=== PATIENT | male | born 1945 | race Caucasian/White ===

== ENCOUNTER → 2023-12-27 08:01 | Outpatient (REF) | payer MEDICARE, OTHER, SELFPAY | LOC: RCS 08:01 | PROVIDERS: ATTENDING PHYSICIAN Nurse Practitioner Gerontology; FAMILY PHYSICIAN Physician Assistant Medical | DX: Q23.1 Congenital insufficiency of aortic valve (principal) | CPT/HCPCS: 93306 ==

== ENCOUNTER 2024-04-01 16:48 | Emergency (ER) | payer MEDICARE, OTHER, SELFPAY ==
[2024-04-01 16:50] VITALS: BP 147/97
--- NOTE | 2024-04-01 18:11 | ED.SKININJ ---
HPI-Injury
General
Chief Complaint: Skin Surface Trauma
Source: patient
Exam Limitations: none
Time Seen by Provider: 04/01/24 18:10
Nursing documentation reviewed up to this point in time: agreed with
History of Present Illness-Injury
Initial Injury comments:
78-year-old male with history of HTN, renal insufficiency with urostomy tube, states he was raking leaves at home within past few hours, tripped and fell striking his face on ground (wearing glasses). Has nose bleed left side which has subsided, has
abrasion right forehead and deep abrasion bridge of nose. Denies LOC, denies H/A, dizziness, change in vision, neck pain or any other injury.
Has had tetanus immunization within the past 5 years.
Past History
Past History
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
his bladder)
ED Past Surgical History: Orthopedic (Lumbar laminectomy, wrist surgery ) and Other (Inguinal hernia repair , Bladder removed with Urestomy,)
Social History
Tobacco: Former smoker
Alcohol: Occasional
Personal:
Living: alone
Employment: Retired
Review of Systems
Review of Systems
Allergies reviewed?: Yes
All Other Systems: ROS reviewed and negative except as documented in HPI and ROS
Constitutional: Denies fever
EENT: Reports other (Left epistaxis, resolved)
Respiratory: Denies trouble breathing
Cardiac: Denies chest pain or syncope
ABD/GI: Denies abdominal pain or nausea
Musculoskeletal: Denies joint pain, neck pain or back pain
Skin: Reports other (Scraped nose and forehead)
Neurological: Reports no symptoms
Phy Exam
Physical Exam
Physical Exam:
GENERAL: No acute distress. A&Ox3.
CONSTITUTIONAL: Afebrile.
EYES: PERRL, conjunctivae normal
Neck: Supple
ENMT: moist mucus membranes, Pharynx nl, TMs normal, no bony tenderness of nose. Bleeding has stopped.
RESPIRATORY: Regular respirations, nonlabored, lungs clear.
CARDIOVASCULAR: Regular rate and rhythm, no murmurs, no rubs.
GI: Soft, nontender, normal BS
MUSCULOSKELETAL: No spinal bony tenderness. Moving all extremities well without pain. Moves with ease. Well perfused.
SKIN: Warm, dry, pink
PSYCH: Normal mood and affect. Well kept, interactive and appropriate
NEUROLOGIC: Awake, alert and oriented. No focal neurological deficits. Ambulates well with steady gait.
Course
Vital Signs
Initial and Last Documented VS:
Initial Vital Signs
Temp Pulse Resp BP Pulse Ox
98.9 F 72 16 147/97 96
04/01/24 16:50 04/01/24 16:50 04/01/24 16:50 04/01/24 16:50 04/01/24 16:50
Last Documented Vital Signs
Temp Pulse Resp BP Pulse Ox
98.9 F 72 16 147/97 96
04/01/24 16:50 04/01/24 16:50 04/01/24 16:50 04/01/24 16:50 04/01/24 16:50
MDM/Problems Addressed
Differential Diagnosis Includes:
78-year-old male with history of HTN, renal insufficiency with urostomy tube, states he was raking leaves at home within past few hours, tripped and fell striking his face on ground (wearing glasses). Has nose bleed left side which has subsided, has
abrasion right forehead and deep abrasion bridge of nose. Denies LOC, denies H/A, dizziness, change in vision, neck pain or any other injury.
Has had tetanus immunization within the past 5 years.
Neuro exam is normal. Not anticoagulated, no history LOC, no indication for head CT
Nasal bones are nontender, no indication for imaging. Patient is fine with this
Epistaxis has stopped
Patient ambulated out with normal gait at discharge. Family member will stay with him tonight.
*Critical Care Note
Total Time (30-74mins, 75-104mins- exclusive of procedures): Not Applicable
ED Attending Note
-
Portions of this chart may have been created with voice recognition software.� Occasional wrong word or��sound alike� substitutions may have occurred due to the inherent limitations of voice recognition software.
Discharge Plan
Departure
Patient Disposition: Home (Routine Discharge)
Date of Disposition: 04/01/24
Time of Disposition: 18:39
Patient with high blood pressure during this ER visit?: No
Condition: Good
Discharge Problem:
Fall from slip, trip, or stumble, Abrasion of forehead, Abrasion of nose, Epistaxis due to trauma
Instructions: Head injury in adults, Taking care of cuts, scrapes, and puncture wounds
Prescriptions:
No Action
metoprolol succinate 50 MG tablet extended release 24 hr
50 mg PO HS
amlodipine 10 MG tablet
5 mg PO DAILY
gemfibrozil 600 MG tablet
600 mg PO BID
glucosamine HCl 1,500 MG tablet
1,500 mg PO DAILY
cholecalciferol (vitamin D3) 1,000 UNITS tablet
1,000 units PO DAILY
sodium bicarbonate 650 MG tablet
1,950 mg PO TID Qty: 150 0RF
omega-3 fatty acids-fish oil [Fish Oil] 1,000 MG capsule
1 cap PO DAILY
Referrals:
Yolande Ramirez PA [Family Provider] - As needed
Activity Restrictions/Additional Instructions:
As we discussed, I see nothing worrisome in your evaluation here tonight
Check with your family doctor and if you have not had a tetanus immunization within the last 5 years you should get 1
Return here immediately for vomiting more than once in 1 hour, confusion or headache that gets worse and worse despite Tylenol
Cleanse the areas with soap and water daily, apply antibiotic ointment.
Interventions
Interventions:
*Risk Screen - Suicide Last Done: 04/01/24 16:50
*General Assessment Last Done: 04/01/24 16:50
*Neglect/Abuse Screening Last Done: 04/01/24 16:50
ED- Fall Risk Assessment Last Done: 04/01/24 18:50
*Nursing Disposition Last Done: 04/01/24 18:50
ED-Skin Assessment Last Done: 04/01/24 18:39
Discharge Date and Time
Discharge Date/Time: 04/01/24 18:51
Print Language: MONGOLIAN
== END 2024-04-01 18:51 | disposition home or self-care (01) ==
LOC: EMR 16:48
PROVIDERS: EMERGENCY PHYSICIAN Emergency Medicine; FAMILY PHYSICIAN Physician Assistant Medical
DX: S00.31XA Abrasion of nose, initial encounter (principal); S00.81XA Abrasion of other part of head, initial encounter; R04.0 Epistaxis; W01.0XXA Fall on same level from slipping, tripping and stumbling without subsequent striking against object, initial encounter; I12.9 Hypertensive chronic kidney disease with stage 1 through stage 4 chronic kidney disease, or unspecified chronic kidney disease; N18.9 Chronic kidney disease, unspecified; E78.00 Pure hypercholesterolemia, unspecified; Z87.442 Personal history of urinary calculi; Z87.891 Personal history of nicotine dependence; Z99.11 Dependence on respirator [ventilator] status; M35.9 Systemic involvement of connective tissue, unspecified
CPT/HCPCS: 99282

== ENCOUNTER 2024-08-08 01:17 | Inpatient (IN) | payer MEDICARE, OTHER, SELFPAY ==
[2024-08-07 22:08] VITALS: BP 128/87
[2024-08-07 22:20] VITALS: BP 132/97
[2024-08-07 22:21] VITALS: BMI 25.7
--- NOTE | 2024-08-07 22:35 | ED.GENMED ---
History of Present Illness
<Rolly Davila MD - Last Filed: 08/07/24 23:13>
General
Chief Complaint: Cardiac Symptoms
Time Seen by Provider: 08/07/24 22:18
<TIFFANIE Boyd - Last Filed: 08/08/24 00:53>
General
Source: patient
Exam Limitations: none
Nursing documentation reviewed up to this point in time: agreed with
History of Present Illness
History of Present Illness:
79-year-old male with past medical history of Legionella, renal failure, renal transplant (followed at [place]) presents to the ER for evaluation. Patient reports around 8:30 PM this evening his Apple Watch went off and told him his heart rate was
elevated. He was asymptomatic at that time. He denied any palpitations chest pain or shortness of breath.
No prior history of cardiac issues. He does follow with cardiology here at [place] for yearly screenings related to his transplant. He has seen Dr. Marlow in the past.
No prior history of CAD or arrhythmia.
No recent [id number]-gra-[id number] cough cold medicines.
Patient remains asymptomatic.
Past History
<TIFFANIE Boyd - Last Filed: 08/08/24 00:53>
Past History
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
his bladder)
ED Past Surgical History: Orthopedic (Lumbar laminectomy, wrist surgery ) and Other (Inguinal hernia repair , Bladder removed with Urestomy,)
Social History
Tobacco: Former smoker
Alcohol: Occasional
Personal:
Living: alone
Employment: Retired
Review of Systems
<TIFFANIE Boyd - Last Filed: 08/08/24 00:53>
Review of Systems
Allergies reviewed?: Yes
All Other Systems: ROS reviewed and negative except as documented in HPI and ROS
Constitutional: Reports no symptoms
EENT: Reports no symptoms
Respiratory: Reports no symptoms; Denies trouble breathing
Cardiac: Reports no symptoms; Denies chest pain, palpitations or syncope
ABD/GI: Reports no symptoms
: Reports no symptoms
Musculoskeletal: Reports no symptoms
Skin: Reports no symptoms
Neurological: Reports no symptoms
Psychiatric: Reports no symptoms
Phy Exam
<TIFFANIE Boyd - Last Filed: 08/08/24 00:53>
General Physical Exam
General Presentation: no apparent distress
General age: appears stated age
General Skin: warm and dry
General Habitus: normal
General Mental: alert
General Hydration: appears well hydrated
Cardiovascular Exam
Cardiovascular Exam: tachycardia
Pulmonary Exam
Pulmonary Exam: lungs clear and no respiratory distress
Neurological Exam
Neurological Exam: alert and oriented x3
Musculoskeletal Exam
Musculoskeletal Exam: full ROM
Skin Exam
Skin Exam: normal color and warm/dry
Psychiatric Exam
Psychiatric Exam: normal mood/affect
Course
<Rolly Davila MD - Last Filed: 08/07/24 23:13>
Orders/Labs/Results
Orders:
Orders
08/07/24 22:00
TSH Reflex To Free T4 Urgent
Comment: ADDED
08/07/24 22:05
ECG [Electrocardiogram (*1)] Urgent
Reason for Study: Tachycardia
EKG- Treatment ONCE
08/07/24 22:07
Cardiac Monitoring- Treatment ONCE
08/07/24 22:20
Complete Blood Count/With Diff Urgent
Comprehensive Metabolic Panel Urgent
Troponin I Routine
08/07/24 22:46
0.9% Sodium Chloride 1000 ml [Nss] 1,000 ml IV BOLUS
08/07/24 22:48
Adenosine [Adenocard] 6 mg IV NOW STA
08/07/24 23:01
Adenosine [Adenocard] 12 mg .ROUTE .STK-MED ONE
08/07/24 23:02
Adenosine [Adenocard] 12 mg IV NOW STA
08/07/24 23:10
Diltiazem HCl [Cardizem] 10 mg IV NOW STA
08/07/24 23:12
Heparin 4,000 units IV NOW STA
Nursing to Place Non Medication Order As Directed
Physician Order: PTT 6 hours after initial start of Heparin infusion
08/07/24 23:15
Diltiazem 125 mg/125 ml Nss [Cardizem] 125 mg in 125 ml IV PER PROTOCOL
Initial dose in mg/hr, then titrate:: 5
Titrate to keep:: Heart rate 80-100 bpm
Titrate by mg/hr:: 5 mg/hr
Frequency of titrations (minutes):: 15
Maximum dose in mg/hr:: 15
Heparin 18044 Units/250 ml 25,000 units in 250 ml IV PER PROTOCOL
Weight to be used for heparin protocol in kilograms (kg):: 88.18
Protocol:: Cardiac Tx/Acute Coronary
PTT Goal Range to be used:: PTT 73 to 111 seconds
Order type:: Initial
INITIAL Infusion Dose (UNITS/KG/hr) & then follow protocol:: 12 units/kg/hr
Infusion Dose in UNITS/hr & then follow protocol (UNITS/hr):: 1,000
INFUSION RATE in mL/hr & then follow protocol (mL/hr):: 10
PTT less than or equal to 64 seconds:: Increase rate by 200 units/hr (+ 2 mL/hr)
PTT 64.1 to 72.9 seconds:: Increase rate by 100 units/hr (+ 1 mL/hr)
PTT 73 to 111 seconds:: Target Range. No change in rate.
PTT 111.1 to 130.9 seconds:: Decrease rate by 100 units/hr (- 1 mL/hr)
PTT 131 to 199.9 seconds:: HOLD for 1 hr. Then decrease rate by 200 units/hr (- 2 mL/hr)
PTT greater than or equal to 200 seconds:: HOLD for 2 hrs & Notify Provider. Then decrease by 200 units/hr (-
2 mL/hr)
Lab follow-up:: Each change, PTT q6h until 2 consecutive are therapeutic. Then PTT
daily.
08/07/24 23:16
Add On- LAB Routine
Tests Added?: tsh with reflexive t4
Add On- LAB Urgent
Tests Added?: tsh with reflexive t4
08/07/24 23:24
PTT Urgent
Comment: Obtain baseline before beginning heparin infusion if not already collected
08/08/24 00:40
Metoprolol Xl [Toprol Xl] 50 mg PO NOW STA
08/08/24 01:20
Troponin I Urgent
Abnormal Lab Results
08/07/24
22:20
RBC 4.69 L 10^6/uL
(4.70-6.10)
MCH 31.8 H pg
(27.0-31.0)
MPV 10.5 H fL
(7.4-10.4)
Absolute Monos (auto) 0.7 H 10^3/uL
(0.1-0.6)
Monocytes % 10.8 H %
(1.7-9.3)
BUN 30 H mg/dl
(9-20)
Glucose 133 H mg/dl
(70-99)
Troponin I 0.078 H* ng/ml
08/07/24 22:20
08/07/24 22:20
Vital Signs
Initial and Last Documented VS:
Initial Vital Signs
Temp Pulse Resp BP Pulse Ox
97.6 F 140 18 128/87 98
08/07/24 22:08 08/07/24 22:08 08/07/24 22:08 08/07/24 22:08 08/07/24 22:08
Last Documented Vital Signs
Temp Pulse Resp BP Pulse Ox
97.6 F 136 17 110/81 94
08/07/24 22:08 08/08/24 00:51 08/08/24 00:00 08/08/24 00:51 08/08/24 00:00
<TIFFANIE Boyd - Last Filed: 08/08/24 00:53>
Orders/Labs/Results
Orders:
Orders
08/07/24 22:00
TSH Reflex To Free T4 Urgent
Comment: ADDED
08/07/24 22:05
ECG [Electrocardiogram (*1)] Urgent
Reason for Study: Tachycardia
EKG- Treatment ONCE
08/07/24 22:07
Cardiac Monitoring- Treatment ONCE
08/07/24 22:20
Complete Blood Count/With Diff Urgent
Comprehensive Metabolic Panel Urgent
Troponin I Routine
08/07/24 22:46
0.9% Sodium Chloride 1000 ml [Nss] 1,000 ml IV BOLUS
08/07/24 22:48
Adenosine [Adenocard] 6 mg IV NOW STA
08/07/24 23:01
Adenosine [Adenocard] 12 mg .ROUTE .STK-MED ONE
08/07/24 23:02
Adenosine [Adenocard] 12 mg IV NOW STA
08/07/24 23:10
Diltiazem HCl [Cardizem] 10 mg IV NOW STA
08/07/24 23:12
Heparin 4,000 units IV NOW STA
Nursing to Place Non Medication Order As Directed
Physician Order: PTT 6 hours after initial start of Heparin infusion
08/07/24 23:15
Diltiazem 125 mg/125 ml Nss [Cardizem] 125 mg in 125 ml IV PER PROTOCOL
Initial dose in mg/hr, then titrate:: 5
Titrate to keep:: Heart rate 80-100 bpm
Titrate by mg/hr:: 5 mg/hr
Frequency of titrations (minutes):: 15
Maximum dose in mg/hr:: 15
Heparin 99473 Units/250 ml 25,000 units in 250 ml IV PER PROTOCOL
Weight to be used for heparin protocol in kilograms (kg):: 88.18
Protocol:: Cardiac Tx/Acute Coronary
PTT Goal Range to be used:: PTT 73 to 111 seconds
Order type:: Initial
INITIAL Infusion Dose (UNITS/KG/hr) & then follow protocol:: 12 units/kg/hr
Infusion Dose in UNITS/hr & then follow protocol (UNITS/hr):: 1,000
INFUSION RATE in mL/hr & then follow protocol (mL/hr):: 10
PTT less than or equal to 64 seconds:: Increase rate by 200 units/hr (+ 2 mL/hr)
PTT 64.1 to 72.9 seconds:: Increase rate by 100 units/hr (+ 1 mL/hr)
PTT 73 to 111 seconds:: Target Range. No change in rate.
PTT 111.1 to 130.9 seconds:: Decrease rate by 100 units/hr (- 1 mL/hr)
PTT 131 to 199.9 seconds:: HOLD for 1 hr. Then decrease rate by 200 units/hr (- 2 mL/hr)
PTT greater than or equal to 200 seconds:: HOLD for 2 hrs & Notify Provider. Then decrease by 200 units/hr (-
2 mL/hr)
Lab follow-up:: Each change, PTT q6h until 2 consecutive are therapeutic. Then PTT
daily.
08/07/24 23:16
Add On- LAB Routine
Tests Added?: tsh with reflexive t4
Add On- LAB Urgent
Tests Added?: tsh with reflexive t4
08/07/24 23:24
PTT Urgent
Comment: Obtain baseline before beginning heparin infusion if not already collected
08/08/24 00:40
Metoprolol Xl [Toprol Xl] 50 mg PO NOW STA
08/08/24 01:20
Troponin I Urgent
Abnormal Lab Results
08/07/24
22:20
RBC 4.69 L 10^6/uL
(4.70-6.10)
MCH 31.8 H pg
(27.0-31.0)
MPV 10.5 H fL
(7.4-10.4)
Absolute Monos (auto) 0.7 H 10^3/uL
(0.1-0.6)
Monocytes % 10.8 H %
(1.7-9.3)
BUN 30 H mg/dl
(9-20)
Glucose 133 H mg/dl
(70-99)
Troponin I 0.078 H* ng/ml
08/07/24 22:20
08/07/24 22:20
Vital Signs
Initial and Last Documented VS:
Initial Vital Signs
Temp Pulse Resp BP Pulse Ox
97.6 F 140 18 128/87 98
08/07/24 22:08 08/07/24 22:08 08/07/24 22:08 08/07/24 22:08 08/07/24 22:08
Last Documented Vital Signs
Temp Pulse Resp BP Pulse Ox
97.6 F 136 17 110/81 94
08/07/24 22:08 08/08/24 00:51 08/08/24 00:00 08/08/24 00:51 08/08/24 00:00
Director Business Travel consulted with Physician
Director Business Travel consulted with physician?: Yes
Name of Physician Consulted: dakota
<TIFFANIE Boyd - Last Filed: 08/08/24 00:53>
MDM/Problems Addressed
Differential Diagnosis Includes:
Not limited to atrial fibrillation a flutter, SVT
MDM/Problems Addressed:
As documented patient is a 79-year-old male with past medical history of renal transplant presented for elevated heart rate. He had no symptoms but his Apple Watch told him his heart rate was elevated. He presents asymptomatic however presented
with a narrow complex tachycardia. Case discussed ED physician at bedside with patient. Patient was given 6 mg of adenosine followed by 12 mg of adenosine which did show a rhythm of a flutter. Patient was then given Cardizem bolus and drip.
Heparin was ordered. Patient is a transplant patient and will likely need consultation with cardiology as well as transplant. Patient is in no acute distress remains asymptomatic denies any fever chills. Patient has normal white count, his Trop
is elevated however this is likely from elevated heart rate no chest pain.
Patient admitted to the hospitalist service. Patient is unsure if he took his metoprolol. He normally takes 100 mg however I will give 50 orally since he is already on Cardizem now.
Chronic conditions affecting care:
renal transplant
<TIFFANIE Boyd - Last Filed: 08/08/24 00:53>
*Critical Care Note
Total Time (30-74mins, 75-104mins- exclusive of procedures): Not Applicable
ED Attending Note
<Rolly Davila MD - Last Filed: 08/07/24 23:13>
ED Attending Note
Patient seen and examined by attending physician: Yes
ED Attending Note:
I have seen and evaluated the patient with a [id number] encounter. I have spoken to the advance practicer provider and involved in the medical history, the physical exam, medical decision making.
Evaluation and management service: agree unless noted differently below.
Results interpretation: agree unless noted differently below.
Focused HPI: 79-year-old male with history as noted presents for evaluation of tachycardia. Patient says that this evening his watch started to alert him that his heart rate was very high and that he should seek medical attention and so he came to
the emergency room. He says he is asymptomatic. Does not believe he has had issues with high heart rate in the past. He has seen Dr. Patterson for routine cardiac screening in the setting of renal transplant.
Physical exam: Awake alert no distress. Tachycardic with ostensibly regular rhythm.
Medical Decision Makin-year-old male presents with narrow complex tachycardia; he is asymptomatic. He is hemodynamically stable. He was given adenosine which showed revealed atrial flutter. No history of atrial fibrillation/flutter. Will
plan for rate control�cardioversion contraindicated in the absence of anticoagulation as patient is asymptomatic and chronicity of atrial fibrillation/flutter unclear. Admit for rate control.
<TIFFANIE Boyd - Last Filed: 08/08/24 00:53>
-
Portions of this chart may have been created with voice recognition software.� Occasional wrong word or��sound alike� substitutions may have occurred due to the inherent limitations of voice recognition software.
Discharge Plan
Departure
Patient Disposition: Admit
Date of Disposition: 08/08/24
Time of Disposition: 00:28
Admit to: IMU
Admit to doctor: hospitalist
Presentation/result/management discussed w/ accepting MD/DO: Hospitalist
Patient with high blood pressure during this ER visit?: No
Condition: Fair
Covid-19: Not Applicable
Discharge Problem:
Atrial flutter
Prescriptions:
No Action
metoprolol succinate 100 mg Tablet Extended Release 24 Hr
100 mg PO DAILY
prednisone 5 mg Tablet
5 mg PO DAILY
Theragen Tablet
1 tab PO HS
aspirin 81 mg Tablet,Delayed Release (/Ec)
81 mg PO HS
simvastatin 20 mg Tablet
20 mg PO HS
hydrochlorothiazide 25 mg Tablet
25 mg PO DAILY
tacrolimus 1 mg Capsule
1 mg PO Q12H
omega 0-afj-etb-fish oil [Fish Oil] 1,000 (120-180) mg Capsule
1 cap PO DAILY
Referrals:
Yolande Ramirez PA [Family Provider] -
UNKNOWN - PT DOES,NOT KNOW [Unknown Provider] -
Interventions
Interventions:
*Risk Screen - Suicide Last Done: 08/07/24 22:08
*General Assessment Last Done: 08/07/24 22:21
*Neglect/Abuse Screening Last Done: 08/07/24 22:08
*ED- Fall Risk Assessment Last Done: 08/07/24 22:21
*ED COVID-19 Vaccine History Last Done: 08/07/24 22:21
ED- Pulmonary Assessment Last Done: 08/07/24 23:15
ED- Cardiac Assessment Last Done: 08/07/24 23:15
Discharge Date and Time
Print Language: CHADIAN
[2024-08-07 22:50] LABS: % Basophils 0.5 % (0-2); % Eosinophils 1.7 % (0-6); % Immature Granulocytes 0.3 % (0-0.5); % Lymphocytes 26.3 % (20.5-51.1); % Monocytes 10.8 % (1.7-9.3); % Neutrophils 60.4 % (42.2-75.2); Absolute Eosinophils 0.1 10^3/uL (0-0.7); Absolute Lymphocytes 1.6 10^3/uL (1.2-3.4); Absolute Monocytes 0.7 10^3/uL (0.1-0.6); Absolute Neutrophils 3.6 10^3/uL (1.4-6.5); Hematocrit 43.2 % (39.0-52.0); Hemoglobin 14.9 g/dL (13.0-18.0); Mean Corp Hgb Conc. 34.5 g/dL (33.0-37.0); Mean Corpuscular Hgb 31.8 pg (27.0-31.0); Mean Corpuscular Volume 92.1 fL (80.0-94.0); Mean Platelet Volume 10.5 fL (7.4-10.4); Nucleated Red Blood Cells % 0 % (-); Platelet Count 130 10^3/uL (130-400); Red Blood Cell Count 4.69 10^6/uL (4.70-6.10); Red Cell Dist. Width 13.6 % (11.5-14.5)
[2024-08-07] MEDS: NSS 1000 IV (22:51)
[2024-08-07] MEDS: ADENOCARD 6 MG IV (22:58)
[2024-08-07 23:02] LABS: ALT (SGPT) 24 U/L (0-50); AST (SGOT) 30 U/L (17-59); Albumin 4.1 g/dl (3.5-5.0); Alkaline Phosphatase 73 U/L (38-126); Blood Urea Nitrogen 30 mg/dl (9-20); Calcium 9.7 mg/dl (8.4-10.2); Carbon Dioxide 27 mmol/L (22-30); Chloride 104 mmol/L (98-107); Estimated Creatinine Clearance 53 ml/min; Glucose 133 mg/dl (70-99); Potassium 3.9 mmol/L (3.5-5.1); Sodium 142 mmol/L (135-145); Total Bilirubin 0.6 mg/dl (0.2-1.3); Total Protein 7.1 g/dl (6.3-8.2); eGFR 56.23
[2024-08-07] MEDS: ADENOCARD 12 MG IV (23:03)
[2024-08-07 23:05] VITALS: BP 134/98
[2024-08-07 23:07] LABS: Troponin I 0.078 ng/ml
[2024-08-07 23:13] VITALS: BMI 26.9
[2024-08-07] MEDS: HEPARIN 4000 UNITS IV (23:27)
[2024-08-07] MEDS: CARDIZEM 10 MG IV (23:31)
[2024-08-07] MEDS: CARDIZEM 125 IV (23:37)
[2024-08-07 23:43] LABS: APTT 28.2 Sec (23.4-35.0)
[2024-08-08] VITALS (21 sets, daily range): BP systolic 93–130; BP diastolic 43–91; BMI 26.5
[2024-08-08] MEDS: HEPARIN 25000 UNITS/250 ML IV (00:30)
--- NOTE | 2024-08-08 00:45 | HPS.HSE ---
Family Physician
-
Family Physician: Yolande Ramirez
Chief Complaint
-
Tachycardia
History of Present Illness
This is 79-year-old male with past medical history significant for end-stage renal disease status post living related kidney transplantation on 10 years ago, hypertension and hyperlipidemia who presents to the emergency department with tachycardia
determined by his wrist watch.
Patient denies any symptoms. He awoke in usual state of health. He states he was more active today but otherwise has been no change in his routine. He does not remember whether he took his usual dose of metoprolol this morning. He did remember
taking his tacrolimus both in the morning and in the evening. He stated that at around 8 PM he was alerted by his watch that his heart rate was in the 130s. He ignored this but then called again and this time he talked to his sibling who is a
nurse. He measured his blood pressure and it was normal. His heart rate remained in the 130s and his sibling asked him to seek help.
Patient denies noticing any palpitations. He denies feeling dizzy or lightheaded. He denies having any chest pain. He denies any shortness of breath. He has chronic lower extremity edema that is dependent and states he has been no recent
changes. He denies any recent cough cold flulike symptoms. Denies any recent diarrhea.
He denies any prior history of palpitations lightheadedness or dizziness.
In the emergency department he was tachycardic to the 130s. Blood pressure was 1 9/86 he was satting 100% on room air. His initial troponin was 0.078. ECG shows narrow complex tachycardia to the 130s. He was given adenosine which she allowed a
dose to see atrial flutter. CBC was unremarkable. Electrolytes were normal with potassium of 3.9. BUN/creatinine were 30 and 1.2 respectively with normal glucose.
Medical History
Past Medical History
Past Medical History: Reports HTN, Hypercholesterolemia and Renal Failure (Incisional disease status post liver related kidney transplantation 10 years ago)
Past Surgical History: Reports Other (Kidney transplantation)
Social History
Tobacco: Non-smoker
Alcohol: None
Drug: None
Personal: Single
Living: Alone
Employment: Retired
Family History
Family History: Not pertinent
Allergies / Home Medications
Allergies reflects when Allergies were last updated in [employer].
Home Medications with original date entered in [employer]
Allergy/Medication List:
Allergies
Allergy/AdvReac Type Severity Reaction Status Date / Time
Sulfa (Sulfonamide Allergy Anaphylaxis Verified 04/01/24 16:49
Antibiotics)
Home Medications
aspirin 81 mg tablet,delayed release 81 mg PO HS 08/07/24
hydrochlorothiazide 25 mg tablet 25 mg PO DAILY 08/07/24
metoprolol succinate 100 mg tablet,extended release 24 hr 100 mg PO DAILY 08/07/24
omega 3-lov-hvw-fish oil 1,000 mg (120 mg-180 mg) capsule (Fish Oil) 1 cap PO DAILY 08/07/24
prednisone 5 mg tablet 5 mg PO DAILY 08/07/24
simvastatin 20 mg tablet 20 mg PO HS 08/07/24
tacrolimus 1 mg capsule, immediate-release 1 mg PO Q12H 08/07/24
therapeutic multivitamin 1 tab PO HS 08/07/24
Review of Systems
-
History Source: Patient
Constitutional: Reports No Symptoms
EENT: Reports No Symptoms
Respiratory: Reports No Symptoms
Cardiac: Reports No Symptoms
Abdomen/GI: Reports No Symptoms
: Reports No Symptoms
Musculoskeletal: Reports No Symptoms
Skin: Reports No Symptoms
Neurological: Reports No Symptoms
Endocrine: Reports No Symptoms
Hematologic/Lymphatic: Reports No Symptoms
Psych: Reports No Symptoms
Physical Exam
Vital Signs
Vital Signs
Temp Pulse Resp BP Pulse Ox
97.6 F 135 17 109/86 94
08/07/24 22:08 08/08/24 00:00 08/08/24 00:00 08/08/24 00:00 08/08/24 00:00
Physical Exam
General: Well Developed, Well Nourished, No Apparent Distress and Comfortable
HEENT: NormoCephalic, Anicteric, Moist mucous membranes and Atraumatic
Respiratory: Clear
Cardiac: S1/S2 and Tachycardia
Breast: Deferred by me
GI: Soft, Non Tender, Non Distended and Normal Bowel Sounds
Rectal: Deferred by Provider
Genito-urinary: Deferred by me
Musculoskeletal: No Clubbing, No Cyanosis, Edema, Left Lower Extremity and Edema, Right Lower Extremity
Skin: Warm
Neuro: AO x 3 and Nonfocal/grossly intact
Hematologic/Lymphatic: No Lymphadenopathy
Psych: Calm
Laboratory Results
-
08/07/24 22:20
08/07/24 22:20
Laboratory Results
APTT 28.2 Sec (23.4-35.0) 08/07/24 23:24
Total Bilirubin 0.6 mg/dl (0.2-1.3) 08/07/24 22:20
AST 30 U/L (17-59) 08/07/24 22:20
ALT 24 U/L (0-50) 08/07/24 22:20
Alkaline Phosphatase 73 U/L (38-126) 08/07/24 22:20
Troponin I 0.078 ng/ml H* 08/07/24 22:20
Data Reviewed
-
Medical Tests (Nuc Med, Echo, EKG etc): Image Personally Visualized and interpreted
Lab Data: Labs Reviewed by me
Old Records: Reviewed
Impression/Plan
-
IMPRESSION:
Asymptomatic atrial flutter, patient not tolerate at around 8:30 PM Tuesday evening. Troponin elevated at 0.078. Hemodynamically stable and in no acute distress.
PLAN:
1. Atrial flutter - HD stable. No hypoxia. No overt heart failure (chronic edema unchanged)
- admit to IVU
- continue diltiazem gtt for now
- continue metoprolol
- clearly will need AC, trend troponin, if flat, will start oral AC, if rising rapidly will start heparin gtt
- tsh pending
- check echo and bnp
- npo for possible cardioversion (though alerted first at 830pm yesterday, cannot absolutely ascertain onset as patient is asymptomatic)
- cardiology consulted and aware
2. ESRD s/p Kidney Tx - Baseline Cr 1.1/1.2 1 month ago. No acute changes.
- continue prednisone and tacrolimus
3. HTN
- continue metoprolol
- given edema, will continue hctz for now pending echo
DVT PPX - SCDs pending repeat trop, then oral or parenteral ac
code status - DNR
[2024-08-08] MEDS: TOPROL XL 50 MG PO (00:51)
[2024-08-08 01:42] LABS: TSH Reflex To Free T4 2.93 uIU/ml (0.47-4.68)
[2024-08-08 03:13] LABS: Troponin I 0.086 ng/ml
--- NOTE | 2024-08-08 03:53 | PTCARENOTE ---
Rec'd pt as admission from ED. AAO*#, Afib on TELE monitor 130's HR, and VSS. Pt denies any pain or discomfort. Pt agreed to maintain bedrest with elevated HR. Cardizem and heparin infusing as ordered. Pt oriented to unit. Pt resting with call
silva in reach and plan of care ongoing.
[2024-08-08 07:02] LABS: APTT 69.5 Sec (23.4-35.0)
[2024-08-08 07:06] LABS: NT-proBNP 5090 pg/ml
[2024-08-08 07:58] LABS: Blood Urea Nitrogen 26 mg/dl (9-20); Calcium 9.4 mg/dl (8.4-10.2); Carbon Dioxide 22 mmol/L (22-30); Chloride 109 mmol/L (98-107); Estimated Creatinine Clearance 69 ml/min; Glucose 104 mg/dl (70-99); HDL Cholesterol 32 mg/dl; LDL Cholesterol, Calculated 34 mg/dl; Phosphorus 3.2 mg/dl (2.5-4.5); Potassium 3.5 mmol/L (3.5-5.1); Sodium 140 mmol/L (135-145); Total Cholesterol 109 mg/dl (50-199); Triglyceride 218 mg/dl (10-149); Very Low Density Lipoprotein 43 mg/dl (0-30); eGFR > 60.00
[2024-08-08] MEDS: ORETIC 25 MG PO (08:32)
[2024-08-08] MEDS: PROGRAF 1 MG PO (08:34)
[2024-08-08] MEDS: DELTASONE 5 MG PO (08:34)
[2024-08-08] MEDS: TOPROL XL 100 MG PO (08:34)
--- NOTE | 2024-08-08 10:15 | CON.CAR ---
Addendum entered and electronically signed by Chucho Ac MD 08/08/24 13:01:
I saw and examined the patient.
The DEVELOPMENT ANALYST's note was reviewed and I agree with the note.
Comment:
79-year-old male (patient of Dr. Byrd) with bicuspid aortic valve and hypertension who presents due to elevated heart rates on his [employer] Watch in the setting of missing his morning metoprolol. He was completely asymptomatic. On admission he
was found to be in atrial flutter with RVR which then converted to atrial fibrillation. He then converted to normal sinus rhythm on a diltiazem drip. At the time of my assessment, he is in normal sinus rhythm and has no cardiovascular complaints.
Physical exam reveals well-appearing man, appears stated age, regular rate and rhythm, no murmurs, stable 1+ lower extremity edema (L>R), clear lungs. Labs notable for creatinine 1.0, troponin 0.078 -> 0.086. TTE 08/08/2024: LVEF 50-55%, bicuspid
aortic valve with aortic sclerosis, TAA 4.3 cm.
For his new diagnosis of atrial fibrillation, we will increase his metoprolol to 150 mg daily. We will also start Eliquis 5 mg twice daily for anticoagulation. His abnormal troponin is likely due to nonischemic myocardial injury in the setting of
atrial fibrillation with RVR. He is safe for discharge and we will arrange follow-up appointment to our office in 2-4 weeks.
Original Note:
Consultation
Consultation Request
Date/Time Consultation Requested: 08/08/24 0255
Date/Time Consultation Performed: 08/08/24 1015
Requesting Provider: Dr. Huitron
Performing Provider: Siri MORENO for Dr. Ac
Reason for Consultation: Atrial flutter
Medical History
-
Chief Complaint: tachycardia
History of Present Illness:
79 y/o male (Dr. Byrd patient) with bicuspid aortic valve with aortic root enlargement, IC LBBB/LAFB, hypertension, hx kidney transplant, hx neurogenic bladder/urostomy/ilial conduit, HLD who is here after smart watch noted tachycardia. No
symptoms. In ER, he was seen to have fast atrial flutter (confirmed aflutter after adenosine administered). Overnight, he was in AFIB on telemetry, now he is in SR at 64 BPM. Of note, it does sound like he forgot to take metoprolol yesterday AM.
Past Medical History
Past Medical History: HTN, Hypercholesterolemia, Valvular Disease and Other (as above)
Past Surgical History: Urological
Social History
Tobacco: Non-Smoker
Alcohol: Occasional
Family History
Family History: Reviewed & Not Pertinent
Allergies / Home Medications
Allergy/AdvReac Type Severity Reaction Status Date / Time
Sulfa (Sulfonamide Allergy Anaphylaxis Verified 04/01/24 16:49
Antibiotics)
�Medication �Instructions �Recorded �Confirmed �Type
aspirin 81 mg tablet,delayed 81 mg PO 08/07/24 08/07/24 History
release
hydrochlorothiazide 25 mg tablet 25 mg PO DAILY 08/07/24 08/07/24 History
metoprolol succinate 100 mg 100 mg PO DAILY 08/07/24 08/07/24 History
tablet,extended release 24 hr
omega 3-enm-knn-fish oil 1,000 mg 1 cap PO DAILY 08/07/24 08/07/24 History
(120 mg-180 mg) capsule (Fish Oil)
prednisone 5 mg tablet 5 mg PO DAILY 08/07/24 08/07/24 History
simvastatin 20 mg tablet 20 mg PO 08/07/24 08/07/24 History
tacrolimus 1 mg capsule, 1 mg PO Q12H 08/07/24 08/07/24 History
immediate-release
therapeutic multivitamin 1 tab PO 08/07/24 08/07/24 History
Review of Systems
-
History Source: Patient
All other systems: Negative unless noted (no symptoms)
Physical Exam
Vital Signs
Temp Pulse Resp BP Pulse Ox
97.4 F 63 20 105/43 96
08/08/24 07:58 08/08/24 08:32 08/08/24 07:58 08/08/24 08:32 08/08/24 07:58
Lab Results
08/07/24 22:20
08/08/24 06:30
Troponin I 0.086 ng/ml H* 08/08/24 01:49
Diy-J-Vbsbvelfqof Pept 5090 pg/ml 08/08/24 06:30
Physical Exam
General: Well Developed, Well Nourished and No Apparent Distress
HEENT: Normocephalic and Anicteric
Respiratory: Clear and Non Labored Respirations
Cardiac: Regular Rhythm
Musculoskeletal: No Edema
Skin: Warm and Dry
Neuro: AO x 3
Psych: Calm
Impression / Plan
-
AFIB (paroxysmal)/aflutter (unknown type):
-now stable in SR. Stop IV diltiazem. Continue metoprolol (it sounds like he forgot to take yesterday AM dose, which is not usual for him).
-echo this AM pending
-TSH WNL
-[id number] score is 3 for age and HTN. Stop heparin, transition to Eliquis 5 mg PO BID - for pricing. Stop aspirin. Denies bleeding or falls.
-OP sleep study
Bicuspid aortic valve:
-has been stable
-echo pending
HTN:
-stable
-continue BB and HCTZ
Abnormal troponin:
-no CP or SOB
-acute, non-ischemic myocardial injury in setting of tachycardia
Hx renal transplant:
-on tacro and prednisone
Data Reviewed
-
EKG: Tracing Personally Visualized and interpreted (Aflutter 137 BPM (my review), IC LBBB)
Medical Tests (Nuc Med, Echo etc): Report Reviewed by me (Echo 12/27/23:EF 50-55%. Mild/moderate mitral regurgitation. Bicuspid aortic valve. Aortic sclerosis without stenosis. Trace aortic regurgitation. Mildly dilated aortic root and ascending aorta
(SOV 3.9 cm, ST junction 3.8 cm, Asc Ao 4.4 cm).)
Labs: Labs Reviewed by me
[2024-08-08] MEDS: ELIQUIS 5 MG PO (11:54)
--- NOTE | 2024-08-08 13:12 | W.PN.HOSP.TC ---
Today's Communication/Plan
-
Discharge today after obtaining Eliquis pricing
Assessment / Plan
Assessment / Plan
Impression:
This is 79-year-old male with past medical history significant for end-stage renal disease status post living related kidney transplantation on 10 years ago, hypertension and hyperlipidemia who presents to the emergency department with tachycardia
determined by his wrist watch.
Patient admitted to the hospital with asymptomatic atrial flutter, Troponin elevated at 0.078. Hemodynamically stable and in no acute distress.
Seen by cardiology.
Echocardiogram done showed:
Normal biventricular size and systolic function without regional wall motion
abnormality. LVEF 50-55%.
Bicuspid aortic valve with aortic sclerosis. No aortic regurgitation.
Mildly dilated ascending aorta (4.3 cm).
No significant change compared to prior echocardiogram on 12/27/2023. Ascending
aorta previously measured 4.4 cm.
Cardiology commending to increase his metoprolol to 150 mg daily.
will start Eliquis 5 mg twice daily for anticoagulation.
Patient will need cardiac follow-up in 2-4 weeks.
Assessment/plan
New onset atrial flutter
-Asymptomatic, HD stable. No hypoxia. No overt heart failure (chronic edema unchanged)
Started on Cardizem drip and heparin drip.
Continued on home metoprolol
Cardiology commending to increase his metoprolol to 150 mg daily.
will start Eliquis 5 mg twice daily for anticoagulation.
Patient will need cardiac follow-up in 2-4 weeks.
Echocardiogram done showed:
Normal biventricular size and systolic function without regional wall motion
abnormality. LVEF 50-55%.
Bicuspid aortic valve with aortic sclerosis. No aortic regurgitation.
Mildly dilated ascending aorta (4.3 cm).
ESRD s/p Kidney Transplant
- Baseline Cr 1.1/1.2 1 month ago. No acute changes.
- continue prednisone and tacrolimus
Hypertension
- continue metoprolol
- given edema, will continue hctz for now pending echo
CODE STATUS:DNR
DVT prophylaxis: Eliquis
Diet: cardiac diet
Total time spent on today's encounter was 55 minutes which included time spent in counseling the patient/family regarding diagnosis and treatment plan as listed above, goals of care, and symptom management. Case was discussed with nursing staff,
specialists, and care coordinators/case management. All labs and imaging personally reviewed by me. Remainder the time spent in detailed review of previous records, lab data, imaging, and other medical provider documentation.
Insert
Anticipated Discharge: Today
Subjective/Interval History
-
Date of Service: August 08, 2024
Patient seen and examined at bedside, denies any chest pain or shortness of breath, no abdominal pain, no nausea, no vomiting, no diarrhea or constipation.
Discussed with daughter at bedside, patient currently in sinus rhythm.
Echocardiogram done.
Plan reviewed with cardiology, will be discharged home today on Eliquis and increased dose of beta-rodriguez.
Objective Data
-
Labs:
Laboratory Results
08/08/24 08/08/24
06:30 11:30
APTT 69.5 H Cancelled
Sodium 140
Potassium 3.5
Chloride 109 H
Carbon Dioxide 22
BUN 26 H
Creatinine 1.0
Glucose 104 H
Calcium 9.4
Vital Signs:
Vital Signs
Temp Pulse Resp BP Pulse Ox
97.7 F 65 18 100/71 94
08/08/24 10:46 08/08/24 10:45 08/08/24 10:46 08/08/24 10:45 08/08/24 10:46
Physical Exam
-
General: Well Developed, Well Nourished, No Apparent Distress and Comfortable
HEENT: Normocephalic, Atraumatic, Moist Mucous Membranes, No Ptosis, PERRLA and Nose Appears Normal
Respiratory: Clear to Auscultation and Non Labored Respirations
Cardiac: Regular Rhythm and S1/S2
Breast: Deferred by me
GI: Soft, Nontender, Nondistended and Normal Bowel Sounds
Genito-urinary: No Costovertebral Tender
Musculoskeletal: No Clubbing, No Cyanosis and No Edema
Skin: Warm
Neuro: Awake, Alert, Oriented, AO x 3 and No Motor Deficits
Psych: Calm
Data Reviewed
-
Diagnostic Radiology: Image personally visualized and interpreted and Report Reviewed by me
CT Scan: Image personally visualized and interpreted and Report Reviewed by me
Ultrasound: Image personally visualized and interpreted and Report Reviewed by me
MRI: Image personally visualized and interpreted and Report Reviewed by me
Medical Tests (Nuc Med, Echo etc): Image personally visualized and interpreted and Report Reviewed by me
Labs: Labs Reviewed by me
Old Records: Reviewed
--- NOTE | 2024-08-08 15:17 | W.DCSUMMARY ---
Discharge Summary
Discharge Data
Date of Admission: 08/08/24
Date of Discharge: 08/08/24
-
Pending Results: No
Hospital Course
Hospital course
This is 79-year-old male with past medical history significant for end-stage renal disease status post living related kidney transplantation on 10 years ago, hypertension and hyperlipidemia who presents to the emergency department with tachycardia
determined by his wrist watch.
Patient admitted to the hospital with asymptomatic atrial flutter, Troponin elevated at 0.078. Hemodynamically stable and in no acute distress.
Seen by cardiology.
Echocardiogram done showed:
Normal biventricular size and systolic function without regional wall motion
abnormality. LVEF 50-55%.
Bicuspid aortic valve with aortic sclerosis. No aortic regurgitation.
Mildly dilated ascending aorta (4.3 cm).
No significant change compared to prior echocardiogram on 12/27/2023. Ascending
aorta previously measured 4.4 cm.
Cardiology commending to increase his metoprolol to 150 mg daily.
will start Eliquis 5 mg twice daily for anticoagulation.
Patient will need cardiac follow-up in 2-4 weeks.
During hospitalization patient was treated from the [facility]
New onset atrial flutter
-Asymptomatic, HD stable. No hypoxia. No overt heart failure (chronic edema unchanged)
Started on Cardizem drip and heparin drip.
Continued on home metoprolol
Cardiology commending to increase his metoprolol to 150 mg daily.
will start Eliquis 5 mg twice daily for anticoagulation.
Patient will need cardiac follow-up in 2-4 weeks.
Echocardiogram done showed:
Normal biventricular size and systolic function without regional wall motion
abnormality. LVEF 50-55%.
Bicuspid aortic valve with aortic sclerosis. No aortic regurgitation.
Mildly dilated ascending aorta (4.3 cm).
ESRD s/p Kidney Transplant
- Baseline Cr 1.1/1.2 1 month ago. No acute changes.
- continue prednisone and tacrolimus
Hypertension
- continue metoprolol
- given edema, will continue hctz for now pending echo
CODE STATUS:DNR
DVT prophylaxis: Eliquis
Diet: cardiac diet
Total time spent on today's encounter was 40 minutes which included time spent in counseling the patient/family regarding diagnosis and treatment plan as listed above, goals of care, and symptom management. Case was discussed with nursing staff,
specialists, and care coordinators/case management. All labs and imaging personally reviewed by me. Remainder the time spent in detailed review of previous records, lab data, imaging, and other medical provider documentation.
Anticipated Discharge: Today
Discharge Plan
-
Patient Disposition: Home (Routine Discharge)
Discharge Diagnosis/Procedures: Atrial flutter with RVR
Condition: Good
Diet: Low Cholesterol and Low Sodium
Activity: As tolerated
Driving Restrictions: As prior to admission
Referrals:
Yolande Ramirez PA [Family Provider] -
Brianna Pereira CRNP [Specified Professional Personl] - 08/29/24 1:40 pm
Prescriptions:
New
Eliquis 5 mg Tablet
5 mg PO BID Qty: 60 0RF
metoprolol succinate 100 mg Tablet Extended Release 24 Hr
150 mg PO DAILY 30 Days Qty: 45 0RF
Continued
prednisone 5 mg Tablet
5 mg PO DAILY
therapeutic multivitamin Tablet
1 tab PO HS
simvastatin 20 mg Tablet
20 mg PO HS
tacrolimus 1 mg Capsule
1 mg PO Q12H
omega 0-igz-xpr-fish oil [Fish Oil] 1,000 (120-180) mg Capsule
1 cap PO DAILY
Discontinued
metoprolol succinate 100 mg Tablet Extended Release 24 Hr
100 mg PO DAILY
aspirin 81 mg Tablet,Delayed Release (Dr/Ec)
81 mg PO HS
hydrochlorothiazide 25 mg Tablet
25 mg PO DAILY
Discharge Orders:
Discharge Patient (As Directed); Ordered 08/08/24
Ordered By: Suraj Benton
Care Plan Goals
Care Plan Goals:
Problem: Readiness for enhanced knowledge related to diagnosis and treatment plan
Goal: Understand your diagnosis and treatment plan needs, including medications if applicable.
Instructions: Know your diagnosis, underlying causes and treatment plan options, including medications if applicable. Consult with your health care team to learn about your diagnosis and treatment plan, including medications if applicable.
Discharge Date and Time
Print Language: ANGOLAN
--- NOTE | 2024-08-08 16:10 | PTCARENOTE ---
Discharge instructions reviewed with Pt and his daughter, Pt expressed understanding.
--- NOTE | 2024-08-08 16:38 | CM ---
spoke to pt in room, he is prev indep, lives alone in a 2 story home with 2 steps to enter. he denies any dc planning needs or dme's. plan is for dc to home when medically stable.
--- NOTE | 2024-08-08 16:39 | CM ---
claire crain with pts pp- [facility] Rx [phone] # [id number]. his first month is $557. after that he pays 24% of the cost ($147/mponth) until he pays $2000 OOP total. he has the 30 day free coupon. he is agreeable estrella reid
[2024-08-08 18:07] LABS: Hepatitis C Antibody Negative (Negative)
== END 2024-08-08 15:32 | disposition home or self-care (01) | DRG 309 ==
LOC: IVU 01:17
PROVIDERS: Nurse Practitioner; Student in an Organized Health Care Education/Training Program; ADMITTING PHYSICIAN Internal Medicine; ATTENDING PHYSICIAN General Practice; EMERGENCY PHYSICIAN Emergency Medicine; FAMILY PHYSICIAN Physician Assistant Medical; OTHER PHYSICIAN Student in an Organized Health Care Education/Training Program
DX: I48.92 Unspecified atrial flutter (principal); I5A Non-ischemic myocardial injury (non-traumatic); Z94.0 Kidney transplant status; I48.0 Paroxysmal atrial fibrillation; I48.91 Unspecified atrial fibrillation; I70.0 Atherosclerosis of aorta; I10 Essential (primary) hypertension; I44.7 Left bundle-branch block, unspecified; I77.819 Aortic ectasia, unspecified site; I34.0 Nonrheumatic mitral (valve) insufficiency; E78.00 Pure hypercholesterolemia, unspecified; Z60.2 Problems related to living alone; Z66 Do not resuscitate; Q23.81 Bicuspid aortic valve; Z88.2 Allergy status to sulfonamides; Z79.82 Long term (current) use of aspirin; Z79.52 Long term (current) use of systemic steroids; Z79.621 Long term (current) use of calcineurin inhibitor; Z87.442 Personal history of urinary calculi
CPT/HCPCS: 80048; 80053; 80061; 83880; 84100; 84443; 84484; 85025; 85730; 86803; 93005; 93306; 99285; J0153

== ENCOUNTER → 2024-10-08 08:45 | Outpatient (REF) | payer MEDICARE, OTHER, SELFPAY ==
[2024-10-08 09:55] LABS: Erythrocyte Sed Rate 12 mm/hour (0-20)
[2024-10-08 09:58] LABS: % Basophils 0.4 % (0-2); % Eosinophils 1.7 % (0-6); % Immature Granulocytes 0.4 % (0-0.5); % Lymphocytes 21.8 % (20.5-51.1); % Monocytes 9.4 % (1.7-9.3); % Neutrophils 66.3 % (42.2-75.2); Absolute Eosinophils 0.1 10^3/uL (0-0.7); Absolute Lymphocytes 1.1 10^3/uL (1.2-3.4); Absolute Monocytes 0.5 10^3/uL (0.1-0.6); Absolute Neutrophils 3.5 10^3/uL (1.4-6.5); Hematocrit 43.6 % (39.0-52.0); Hemoglobin 14.3 g/dL (13.0-18.0); Mean Corp Hgb Conc. 32.8 g/dL (33.0-37.0); Mean Corpuscular Hgb 30.8 pg (27.0-31.0); Mean Platelet Volume 10.2 fL (7.4-10.4); Nucleated Red Blood Cells % 0 % (-); Platelet Count 132 10^3/uL (130-400); Red Blood Cell Count 4.64 10^6/uL (4.70-6.10); Red Cell Dist. Width 13.8 % (11.5-14.5); White Blood Cell Count 5.2 10^3/uL (4.8-10.8)
[2024-10-08 10:41] LABS: C-Reactive Protein < 5.00 mg/L (0.0-10.00)
[2024-10-08 11:03] LABS: Uric Acid 6.8 mg/dl (3.5-8.5)
[2024-10-08 13:45] LABS: Lyme Antibody Screen, EIA Negative (Negative)
== END ==
LOC: REG 08:45
PROVIDERS: ATTENDING PHYSICIAN Family Medicine; FAMILY PHYSICIAN Physician Assistant Medical; OTHER PHYSICIAN Internal Medicine Nephrology
DX: L03.119 Cellulitis of unspecified part of limb (principal)
CPT/HCPCS: 36415; 84550; 85025; 85652; 86140; 86618

== ENCOUNTER → 2024-11-06 10:23 | Outpatient (REF) | payer MEDICARE, OTHER, SELFPAY ==
[2024-11-06 12:48] LABS: Blood Urea Nitrogen 25 mg/dl (9-20); Calcium 9.3 mg/dl (8.4-10.2); Carbon Dioxide 27 mmol/L (22-30); Chloride 112 mmol/L (98-107); Glucose 90 mg/dl (70-99); Potassium 4.1 mmol/L (3.5-5.1); Sodium 144 mmol/L (135-145); eGFR > 60.00
== END ==
LOC: REG 10:23
PROVIDERS: ATTENDING PHYSICIAN Internal Medicine Cardiovascular Disease; FAMILY PHYSICIAN Physician Assistant Medical; OTHER PHYSICIAN Specialist
DX: Z94.0 Kidney transplant status (principal); R60.0 Localized edema; R53.83 Other fatigue
CPT/HCPCS: 36415; 80048; 83880; 84443

== ENCOUNTER → 2025-02-08 09:03 | Outpatient (REF) | payer MEDICARE, OTHER, SELFPAY | LOC: DHSLP 09:03 | PROVIDERS: ATTENDING PHYSICIAN Internal Medicine Critical Care Medicine; FAMILY PHYSICIAN Physician Assistant Medical | DX: G47.33 Obstructive sleep apnea (adult) (pediatric) (principal) | CPT/HCPCS: 95800 ==